=== PATIENT | female | born 1960 | race Caucasian/White ===

== ENCOUNTER 2022-07-19 10:09 | Outpatient (CLI) | payer OTHER, SELFPAY ==
--- NOTE | 2022-07-19 10:15 | CRLHL7_ITS ---
For Patients: As a result of the Century Cures Act, medical imaging exams and procedure reports are released immediately into your electronic medical record. You may view this report before your referring provider. If you have questions, please contact your health care provider. BILATERAL SCREENING MAMMOGRAM WITH COMPUTER-AIDED DETECTION TECHNIQUE: CC and MLO views were obtained. These mammographic images have been obtained using full-field digital technique. These mammographic images were interpreted with the benefit of computer-aided detection. COMPARISON FILM: 10/06/19, 09/24/18, 03/08/16. FINDINGS: There are scattered areas of fibroglandular density IMPRESSION: There is no radiographic evidence for malignancy. ASSESSMENT: BI-RADS Category 1: Negative RECOMMENDATION: Routine screening mammogram in 1 year. A lay language report of this examination will be provided to the patient. Tomas Watkins M.D. Diagnostic Radiologist [email or web address] BRITTNEY/Dictated by: Tomas Watkins MD @ 07/19/2022 11:02:00 AM (Electronically Signed)
== END 2022-07-19 10:10 | disposition home or self-care (01) ==
LOC: MAMMO 10:10
PROVIDERS: PCP Physician Assistant Medical; Visit Provider Physician Assistant Medical
DX: Z12.31 Encounter for screening mammogram for malignant neoplasm of breast (principal)
CPT/HCPCS: 77063; 77067

== ENCOUNTER 2022-08-29 07:53 | Day surgery (SDC) | payer OTHER, SELFPAY ==
[2022-08-29] VITALS (12 sets, daily range): BP systolic 113–157; BP diastolic 71–95; PULSE 56–69; RESP 12–16; TEMP 36.1–36.4; O2SAT 96–98; BMI 27.9
[2022-08-29] MEDS: LACTATED RINGERS 1000 ML 1,000 ML 100 ML IV (07:30)
[2022-08-29] MEDS: SODIUM CHLORIDE 0.9 % (FLUSH) 10 ML SYRINGE IVF (08:09)
[2022-08-29] MEDS: ROPIVACAINE 0.5% 30 ML 150 MG INJECTION (09:55)
--- NOTE | 2022-08-29 09:55 | P.ORPRC_ITS ---
Procedure Note Date of procedure: 08/29/22 Procedure: PREOPERATIVE DIAGNOSIS: 1. Left knee medial meniscus tear POSTOPERATIVE DIAGNOSIS: 1. Left knee medial meniscus tear-complex 2. 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 Left knee loose body-chondral fragment measuring 9 mm in diameter (likely coming from the patellar chondral defect) PROCEDURE: 1. Left knee arthroscopic partial medial menisectomy 2. Left knee arthroscopic chondroplasty patella 3. Left knee arthroscopic loose body removal SURGEON: Juno Reyes M.D. SOFTWARE TECHNICIAN: Ken Villagran PA-C. Of note, an ophthalmic medical assistant was critical for this case to aid in patient positioning, knee manipulation, instrument exchange, and closure. ANESTHESIA: Spinal EBL: 2ml TOURNIQUET: 30 min at 300 torr COMPLICATIONS: None evident INDICATIONS: The patient is a pleasant 62-year-old female who has experienced left knee pain particularly with any twisting or turning. Physical exam was concerning for medial meniscus tear, this was confirmed on MRI. Additionally, attempted nonoperative management has been tried, and failed. Thus, surgery was recommended. FINDINGS: 9 mm loose body immediately identified within the suprapatellar pouch upon entering the joint. 10 mm chondral defect patella median ridge centrally. Likely the donor site for the loose body. Complex tearing posterior horn to midbody medial meniscus. The posterior root was involved as well. Grade 2 chondromalacia primarily medial femoral condyle. ACL and PCL were intact. Lateral articular cartilage was healthy as was the lateral meniscus. DESCRIPTION OF PROCEDURE: After a thorough discussion of risks, benefits, and alternatives, the patient was brought to the operating room and placed upon the operating table. Induction of anesthesia was undertaken as previously noted. 2g iv Ancef was administered within 1 hr of incision preoperatively. Appropriate time-out was performed identifying proper patient, site, and procedure. The left lower extremity was prepped and draped in the appropriate sterile fashion using ChloraPrep. The limb was exsanguinated and tourniquet inflated. Anterolateral and anteromedial portals were established with an 11 blade, and a diagnostic arthroscopy was performed. This identified the findings as noted above. Following the diagnostic arthroscopy, a partial medial menisectomy was performed with the combination of basket forceps and a motorized shaver. Following this, the meniscus was re-probed and found to be stable. Approximately 10 or 40% of the overall meniscus required resection. Shaver was also utilized for loose body excision. After approximately 30 s econds, the shaver was able to debride this completely chondral fragment. Finally, chondroplasty was performed of the patellar chondral defect of the loose chondral flaps with a torpedo shaver. At this stage, the shaver was reinserted into the suprapatellar pouch and all remaining meniscal debris was evacuated. Instruments were removed, excess fluid was drained, and closure performed with 4-0 Monocryl with Steri-Strips. Dressings were applied, the tourniquet deflated, and the patient was awoken from anesthesia and transferred to the PACU in stable condition. PLAN: 1. Weightbear as tolerated operative extremity. Crutch / walker ambulation assistance PRN. Straight leg raise to be initiated starting tomorrow by the patient. 2. Ice, acetominophen and/or ibuprofen, and Percocet for pain as needed. 3. Knee range of motion and quad sets/straight leg raise regularly 4. Follow up with PA visit in 7-10 days. for a wound check. Initiate physical therapy at that time
--- NOTE | 2022-08-29 10:08 | W.ANESCHARGE ---
Anesthesia Charges Start Date/Time Anesthesia Start Date: 08/29/22 Anesthesia Start Time: 09:05 Stop Date/Time Anesthesia Stop Date: 08/29/22 Anesthesia Stop Time: 10:07 Summary Emergency: No
== END 2022-08-29 11:46 | disposition home or self-care (01) ==
PROVIDERS: PCP Physician Assistant Medical; Visit Provider Orthopaedic Surgery Sports Medicine
PROC: (CPT 29882; principal; 2022-08-29 09:15)
DX: S83.232A Complex tear of medial meniscus, current injury, left knee, initial encounter (principal); M22.42 Chondromalacia patellae, left knee; M24.012 Loose body in left shoulder
CPT/HCPCS: 29881; 01400; J1100; J2250; J2400; J2405; J2704; J2795; J3010; J7120

== ENCOUNTER 2023-04-10 07:36 | Outpatient (CLI) | payer OTHER, SELFPAY | END 2023-04-10 07:37 | disposition home or self-care (01) | LOC: NFLDREF 15:43 | PROVIDERS: PCP Physician Assistant Medical; Referring Provider Physician Assistant Medical; Visit Provider Physician Assistant Medical | DX: I10 Essential (primary) hypertension (principal); N18.2 Chronic kidney disease, stage 2 (mild); R80.9 Proteinuria, unspecified; E78.5 Hyperlipidemia, unspecified; E55.9 Vitamin D deficiency, unspecified; D50.9 Iron deficiency anemia, unspecified | CPT/HCPCS: 80053; 80061; 80069; 84439; 84443 ==

== ENCOUNTER 2023-04-16 14:27 | Outpatient (CLI) | payer OTHER, SELFPAY ==
[2023-04-16 17:57] LABS: Creatinine Urine 77.6 mg/dL; Microalbumin Creatinine Ratio 90 mg/g (0-30); Microalbumin Urine 7 mg/dL
== END 2023-04-16 14:28 | disposition home or self-care (01) ==
LOC: NFLDREF 14:27
PROVIDERS: PCP Physician Assistant Medical; Visit Provider Internal Medicine Nephrology
DX: N18.2 Chronic kidney disease, stage 2 (mild) (principal)
CPT/HCPCS: 82043; 82570; 87086

== ENCOUNTER 2023-05-27 09:24 | Outpatient (CLI) | payer OTHER, SELFPAY ==
--- NOTE | 2023-05-27 10:50 | W.ANESCHARGE ---
Anesthesia Charges Start Date/Time Anesthesia Start Date: 05/27/23 Anesthesia Start Time: 10:25 Stop Date/Time Anesthesia Stop Date: 05/27/23 Anesthesia Stop Time: 10:50
--- NOTE | 2023-05-27 11:15 | W.ANESCHARGE ---
Anesthesia Charges Start Date/Time Anesthesia Start Date: 05/27/23 Anesthesia Start Time: 10:25 Stop Date/Time Anesthesia Stop Date: 05/27/23 Anesthesia Stop Time: 10:50
== END 2023-05-27 09:25 | disposition home or self-care (01) ==
LOC: OP CLINIC 09:25
PROVIDERS: PCP Physician Assistant Medical; Visit Provider Surgery
DX: Z12.11 Encounter for screening for malignant neoplasm of colon (principal); K63.5 Polyp of colon
CPT/HCPCS: 45385; 811; 88305; J2704

== ENCOUNTER 2023-07-03 13:12 | Outpatient (CLI) | payer OTHER, SELFPAY | END 2023-07-03 13:13 | disposition home or self-care (01) | PROVIDERS: PCP Physician Assistant Medical; Visit Provider Physician Assistant Medical | DX: Z00.00 Encounter for general adult medical examination without abnormal findings (principal); D50.9 Iron deficiency anemia, unspecified; E78.5 Hyperlipidemia, unspecified; E55.9 Vitamin D deficiency, unspecified; N18.2 Chronic kidney disease, stage 2 (mild); I10 Essential (primary) hypertension; R80.9 Proteinuria, unspecified; R53.83 Other fatigue | CPT/HCPCS: 80061; 82306; 82607; 82728; 84443; 84450; 84460 ==

== ENCOUNTER 2023-07-25 09:58 | Outpatient (CLI) | payer OTHER, SELFPAY ==
--- NOTE | 2023-07-25 10:15 | CRLHL7_ITS ---
For Patients: As a result of the Century Cures Act, medical imaging exams and procedure reports are released immediately into your electronic medical record. You may view this report before your referring provider. If you have questions, please contact your health care provider. BILATERAL SCREENING MAMMOGRAM WITH COMPUTER-AIDED DETECTION TECHNIQUE: CC and MLO views were obtained. These mammographic images have been obtained using full-field digital technique. These mammographic images were interpreted with the benefit of computer-aided detection. COMPARISON FILM: 07/19/22, 10/06/19, 09/24/2018. FINDINGS: There are scattered areas of fibroglandular density. IMPRESSION: There is no radiographic evidence for malignancy. ASSESSMENT: BI-RADS Category 1: Negative RECOMMENDATION: Routine screening mammogram in 1 year. A lay language report of this examination will be provided to the patient. DARA CHONG M.D. Diagnostic/Nuclear Medicine Radiologist [email or web address] Transcribed: 1:[address]/Dictated by: Dara Chong MD @ 07/26/2023 10:16:00 AM (Electronically Signed)
== END 2023-07-25 09:59 | disposition home or self-care (01) ==
LOC: MAMMO 09:58
PROVIDERS: PCP Physician Assistant Medical; Visit Provider Physician Assistant Medical
DX: Z12.31 Encounter for screening mammogram for malignant neoplasm of breast (principal)
CPT/HCPCS: 77067

== ENCOUNTER 2023-10-23 09:04 | Outpatient (CLI) | payer OTHER, SELFPAY | END 2023-10-23 09:05 | disposition home or self-care (01) | LOC: NFLDREF 10-26 07:18 | PROVIDERS: PCP Physician Assistant Medical; Referring Provider Physician Assistant Medical; Visit Provider Internal Medicine Nephrology | DX: D50.9 Iron deficiency anemia, unspecified (principal); E78.5 Hyperlipidemia, unspecified; I10 Essential (primary) hypertension; N18.2 Chronic kidney disease, stage 2 (mild) | CPT/HCPCS: 80061; 80069; 82043; 82570; 84450; 84460; 84550; 86140; 87086 ==

== ENCOUNTER 2024-08-05 09:20 | Outpatient (CLI) | payer OTHER, SELFPAY | END 2024-08-05 09:21 | disposition home or self-care (01) | LOC: NFLDREF 08-06 08:26 | PROVIDERS: PCP Physician Assistant Medical; Referring Provider Physician Assistant Medical; Visit Provider Physician Assistant Medical | DX: Z00.00 Encounter for general adult medical examination without abnormal findings (principal); I10 Essential (primary) hypertension; N18.2 Chronic kidney disease, stage 2 (mild); E55.9 Vitamin D deficiency, unspecified; E78.2 Mixed hyperlipidemia; I51.7 Cardiomegaly | CPT/HCPCS: 80053; 80061; 82306; 84443 ==

== ENCOUNTER 2025-02-17 13:47 | Outpatient (CLI) | payer OTHER, SELFPAY ==
--- NOTE | 2025-02-17 14:00 | CRLHL7_ITS ---
For Patients: As a result of the Century Cures Act, medical imaging exams and procedure reports are released immediately into your electronic medical record. You may view this report before your referring provider. If you have questions, please contact your health care provider. INDICATION: BILATERAL SCREENING MAMMOGRAM, ASYMPTOMATIC 64 Y/O FEMALE COMPARISON: 07/25/2023, 07/19/2022, 10/06/2019 TECHNIQUE: Digital mammogram in CC and MLO projections including computer-aided detection (CAD) and tomosynthesis. BREAST COMPOSITION: There are scattered areas of fibroglandular density. FINDINGS: No suspicious findings. ASSESSMENT: BI-RADS 1 Negative RECOMMENDATION: Annual screening mammogram. A lay language report of this examination will be provided to the patient. Dictated by: Tomas Watkins MD @ 02/18/2025 09:17:15 (Electronically Signed)
== END 2025-02-17 13:48 | disposition home or self-care (01) ==
LOC: MAMMO 13:48
PROVIDERS: PCP Physician Assistant Medical; Visit Provider Physician Assistant Medical
DX: Z12.31 Encounter for screening mammogram for malignant neoplasm of breast (principal)
CPT/HCPCS: 77063; 77067

== ENCOUNTER 2025-03-31 10:01 | Day surgery (SDC) | payer OTHER, SELFPAY ==
[2025-03-31] VITALS (24 sets, daily range): BP systolic 90–188; BP diastolic 55–99; PULSE 44–76; RESP 10–18; TEMP 34.9–36.3; O2SAT 94–98; BMI 28.6
[2025-03-31] MEDS: LACTATED RINGERS 1000 ML 1,000 ML 100 ML IV ×2 (10:32→12:56)
[2025-03-31] MEDS: OXYCODONE (CR) 10 MG TAB.ER.12H PO (10:33)
[2025-03-31] MEDS: ACETAMINOPHEN 500 MG TABLET 1000 MG PO ×3 (10:33→23:30)
[2025-03-31] MEDS: SODIUM CHLORIDE 0.9 % (FLUSH) 10 ML SYRINGE IVF (10:33)
--- NOTE | 2025-03-31 11:10 | W.PM.H&PU ---
History & Physical Update History & Physical Update H&P Reviewed and patient assessed: No changes noted
[2025-03-31] MEDS: MIDAZOLAM HCL 1 MG/ML inj IVP (11:55)
[2025-03-31] MEDS: fentaNYL 100 MCG/2 ML inj IVP (11:55)
--- NOTE | 2025-03-31 12:08 | SUR.PREOP ---
TIME?OUT:?1155 PT/RN/MDA?VERIFICATION?OF?SURGICAL?SITE,?PROCEDURE,?AND?CONSENT OBTAINED?PRIOR?TO?INVASIVE?PROCEDURE.
[2025-03-31] MEDS: CEFAZOLIN 1 GM inj IVP (12:10)
--- NOTE | 2025-03-31 12:15 | P.NB_ITS ---
Nerve Block Nerve Block Time Seen by Provider: 11:57 Date Seen: 03/31/25 Type of block requested by surgeon for post-operative analgesia: adductor canal Side: right Time out performed: Yes Verification of patient name: Yes Verification of date of : Yes Site marking: site marked Name of person performing procedure: Isaías Continuous monitoring Was continuous monitoring of O2 sat, B/P, air sampling and monitoring, recorded every 15 minutes?: Yes Procedure Checklist: sterile prep, needles and gloves Ultrasound guided. Images saved: Yes Medications given in 5ml increments after negative aspiration: Marcaine %: 0.25 mL: 15 Needle gauge: 20 Precedex (mcg): 25 Patient tolerated procedure well: Yes Block Charges Block Charge (with Pro Fee): Femoral Nerve Use of Ultrasound Machine for Block: Yes- US Guidance/pain block
--- NOTE | 2025-03-31 12:16 | P.ANES_ITS ---
Anesthesia Charges Start Date/Time Anesthesia Start Date: 03/31/25 Anesthesia Start Time: 12:02 Stop Date/Time Anesthesia Stop Date: 03/31/25 Anesthesia Stop Time: 14:16 Coding CPT Codes CPT Codes: ANESTH KNEE ARTHROPLASTY - 39593 ([id number]) P2 - PATIENT W/MILD SYST DISEASE, QK - ADMISSIONS SUPERVISOR 2-4 CNCRNT ANES PROC, QX - MASSAGE THERAPIST SVC W/ MD MED DIRECTION
--- NOTE | 2025-03-31 12:16 | P.NB_ITS ---
Nerve Block Nerve Block Time Seen by Provider: 11:57 Date Seen: 03/31/25 Type of block requested by surgeon for post-operative analgesia: geniculars Side: right Time out performed: Yes Verification of patient name: Yes Verification of date of : Yes Site marking: site marked Name of person performing procedure: Isaías Continuous monitoring Was continuous monitoring of O2 sat, B/P, laboratory monitor, recorded every 15 minutes?: Yes Procedure Checklist: sterile prep, needles and gloves Ultrasound guided. Images saved: Yes Medications given in 5ml increments after negative aspiration: Marcaine %: 0.25 mL: 9 Needle gauge: 25 Patient tolerated procedure well: Yes Block Charges Block Charge (with Pro Fee): Genicular Nerve Block
--- NOTE | 2025-03-31 12:16 | W.ANESCHARGE ---
Anesthesia Charges Start Date/Time Anesthesia Start Date: 03/31/25 Anesthesia Start Time: 12:02 Stop Date/Time Anesthesia Stop Date: 03/31/25 Anesthesia Stop Time: 14:16 Coding CPT Codes CPT Codes: ANESTH KNEE ARTHROPLASTY - 04542 ([id number]) P2 - PATIENT W/MILD SYST DISEASE, QK - THREAD REELER 2-4 CNCRNT ANES PROC, QX - FASHION COORDINATOR SVC W/ MD MED DIRECTION
[2025-03-31] MEDS: TRANEXAMIC ACID 100 MG/ML INJ 1000 MG IV (12:20)
--- NOTE | 2025-03-31 12:25 | CRLHL7_ITS ---
For Patients: As a result of the Cures Act, medical imaging exams and procedure reports are released immediately into your electronic medical record. You may view this report before your referring provider. If you have questions, please contact your health care provider. Indication: Postop Technique: Two views right knee Findings/Impression: Hardware from a right total knee arthroplasty is in satisfactory position. Bone alignment is normal. No sign of acute fracture. Postop changes are within normal limits. Dictated by Tomas Watkins MD @ 03/31/2025 2:41:15 PM (Electronically Signed)
--- NOTE | 2025-03-31 13:37 | PM.ORPRC ---
Procedure Note Date of procedure: 03/31/25 Procedure: PREOPERATIVE DIAGNOSIS: 1. Right knee osteoarthritis, primary, severe POSTOPERATIVE DIAGNOSIS: 1. Right knee osteoarthritis, primary, severe PROCEDURE: 1. Right total knee arthroplasty SURGEON: Juno Reyes MD. GROUP UNDERWRITER: Radha Vuong PA-C - Of note, a skilled family readiness support assistant was critical for this case to aid in patient positioning, tissue retraction, limb manipulation/positioning, and closure. ANESTHESIA: [Spinal] anesthetic EBL: [50ml] IMPLANTS: DePuy J&J uncemented TKA - Attune PS femur size 6 regular Size 5 tibia [5] poly spacer 38 mm [Affixium] patella TOURNIQUET: [90 min at 300 torr] COMPLICATIONS: [None evident] INDICATIONS: The patient is a pleasant 64-year-old female who has experienced severe right knee pain and difficulty bearing weight. Workup included x-rays which revealed severe osteoarthrosis in the knee. Given the deformity, the dysfunction, and the pain, as well as the failure of nonoperative management, recommendation was made for surgery. FINDINGS: Full-thickness chondral loss diffusely throughout the lateral and patellofemoral compartments and to a lesser degree medial compartment. Degenerative lateral greater than medial meniscus pathology. Large effusion upon entering the joint. DESCRIPTION OF PROCEDURE: Following a thorough discussion of risks, benefits, and alternatives consent was obtained and the right knee was marked. The patient was brought to the operating room and placed supine on the operating table. Induction of anesthesia was undertaken. [2 g IV Ancef] and 1 g tranexamic acid was administered within 1 hr of incision preoperatively. Proper time-out was performed identifying proper patient, site, procedure. The operative extremity was prepped and draped in the appropriate sterile fashion using ChloraPrep after the patient was positioned supine with all bony prominences well padded. A longitudinal, anterior, midline skin incision was made starting approximately 3cm proximal to the superior pole of the patella and advanced distal to the tibial tubercle. A [sub vastus approach was utilized] . After mobilizing the patella, retropatellar fatpad was resected and the synovium in the suprapatellar pouch excised to visualize the anterior femoral cortex. Patellar prep began with an initial measurement/thickness of [24] mm. It was resected back to approximately [14] mm. The patella prep was completed with drilling and a trial placed. Femoral preparation was performed via an intramedullary guide. Step drill allowed access into the femoral canal. The distal cutting guide was placed with 6? of valgus and 13 mm cut on the distal femur[ due to a 10+ degree flexion contracture]. Femur was sized using a [anterior] referencing guide in [3]? of external rotation. This found have a best fit with the sizing noted above. The 4 in 1 cutting block was then placed, and the distal femur shaped accordingly. The box cut was then created and the trial implant inserted to confirm appropriate fit. We turned our attention to the proximal tibia. Extramedullary guide was utilized for cutting with the goal of being 90 degree cut from the mechanical axis of the tibia in the varus/valgus plane utilizing tibial crest as the primary alignment. Initially a 3 mm resection was performed from the medial tibial plateau.[ An additional 2 mm of tibial resection was needed to achieve proper balance in both flexion & extension.] Ultimately, balancing was achieved in both flexion and extension in both varus and valgus. The knee was able to achieve full extension comfortably. It was sized to be a best fit with as noted above. [At this stage, trial implants were removed, the tibia and femoral and patellar components were opened and inserted. The real poly spacer was opened and inserted. A 3 min Betadine soak performed. Finally, a final irrigation round with normal saline was performed.] Closure performed with 0 PDS and #0 Stratafix for the quad tendon/retinaculum. 2-0 Vicryl/Stratafix for the subcutaneous and 4-0 Monocryl for subcuticular closure. Dressings were applied and the patient was awoken from anesthesia after the tourniquet deflated and transferred the PACU in stable condition. A skilled family readiness support assistant was critical for this case to aid in patient positioning, tissue retraction, bone exposure, limb manipulation/positioning, patient safety, and closure. PLAN: 1. Weight bear as tolerated operative extremity. 2. 23 hr perioperative antibiotics. 3. Ice. 4. PT/OT consults for ambulation assistance/mobility education. 5. Social work consult for discharge planning. 6. DVT prophylaxis with at SCDs, and Xarelto.
--- NOTE | 2025-03-31 14:18 | P.ANES_ITS ---
Anesthesia Charges Start Date/Time Anesthesia Start Date: 03/31/25 Anesthesia Start Time: 12:02 Stop Date/Time Anesthesia Stop Date: 03/31/25 Anesthesia Stop Time: 14:16 Coding CPT Codes CPT Codes: ANESTH KNEE ARTHROPLASTY - 03861 ([id number]) P2 - PATIENT W/MILD SYST DISEASE, QK - MARKETING EFFECTIVENESS MANAGER 2-4 CNCRNT ANES PROC, QX - INDUSTRIAL ECONOMIST SVC W/ MD MED DIRECTION
--- NOTE | 2025-03-31 14:18 | W.ANESCHARGE ---
Anesthesia Charges Start Date/Time Anesthesia Start Date: 03/31/25 Anesthesia Start Time: 12:02 Stop Date/Time Anesthesia Stop Date: 03/31/25 Anesthesia Stop Time: 14:16 Coding CPT Codes CPT Codes: ANESTH KNEE ARTHROPLASTY - 21294 ([id number]) P2 - PATIENT W/MILD SYST DISEASE, QK - SOFT SUGAR SUPERVISOR 2-4 CNCRNT ANES PROC, QX - BUILDING CONSTRUCTION ENGINEER SVC W/ MD MED DIRECTION
--- NOTE | 2025-03-31 15:16 | PM.IMCN1 ---
Date of Consult Patient: [facility] Patient Consult date: 03/31/25 Requesting Physician: Orthopedics Primary Care Provider: Héctor Edward PA-C Consult Narrative Reason for consult: Medical management of comorbidities Narrative: Susan Tellez is a 64 year old female who presented to the hospital today for an elective R TKA with Dr. Reyes of Orthopedic Surgery. There were no surgical or anesthetic complications noted during procedure. Patient's H&P reviewed, PCP is Héctor Edward. 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 History of blood clots: No Postoperative plan: Home with family. Review of Systems Status of ROS: Reports: 10 or more systems reviewed and unremarkable except as noted in History and below PFSH [facility] Medical History (Updated 03/31/25 @ 17:37 by Marii Chaney MD) Hyperlipidemia ?E78.5 - Hyperlipidemia, unspecified (ICD-10) Proteinuria (12/22/12) ?R80.9 - Proteinuria, unspecified (ICD-10) Osteoarthritis of left knee ?M17.12 - Unilateral primary osteoarthritis, left knee (ICD-10) Osteoarthritis of right knee ?M17.11 - Unilateral primary osteoarthritis, right knee (ICD-10) Other internal derangements of left knee ?M23.8X2 - Other internal derangements of left knee (ICD-10) Acute medial meniscus tear of left knee ?S83.242A - Other tear of medial meniscus, current injury, left knee, initial encounter (ICD-10) Vitamin D deficiency (12/22/12) ?E55.9 - Vitamin D deficiency, unspecified (ICD-10) Stage 2 chronic kidney disease (03/04/13) ?N18.2 - Chronic kidney disease, stage 2 (mild) (ICD-10) Cardiomegaly ?I51.7 - Cardiomegaly (ICD-10) Benign hypertension (12/03/11) ?I10 - Essential (primary) hypertension (ICD-10) Herpes zoster ?B02.9 - Zoster without complications (ICD-10) Iron deficiency anemia (12/22/12) ?D50.9 - Iron deficiency anemia, unspecified (ICD-10) Tendinitis of left quadriceps tendon ?M76.892 - Other specified enthesopathies of left lower limb, excluding foot (ICD-10) Patellar tendinitis, left knee ?M76.52 - Patellar tendinitis, left knee (ICD-10) Effusion, left knee ?M25.462 - Effusion, left knee (ICD-10) Chest pain ?R07.9 - Chest pain, unspecified (ICD-10) History of pulmonary embolism ?Z86.711 - Personal history of pulmonary embolism (ICD-10) Nephropathy (12/22/12) ?N28.9 - Disorder of kidney and ureter, unspecified (ICD-10) Ganglion of wrist ?M67.439 - Ganglion, unspecified wrist (ICD-10) Surgical History (Updated 03/31/25 @ 17:36 by Marii Chaney MD) Status post right knee replacement ?Z96.651 - Presence of right artificial knee joint (ICD-10) History of colonoscopy ?Z98.890 - Other specified postprocedural states (ICD-10) S/P left knee arthroscopy ?Z98.890 - Other specified postprocedural states (ICD-10) S/P right knee arthroscopy (04/03/11) ?Z98.890 - Other specified postprocedural states (ICD-10) Status post biopsy of kidney ?Z98.890 - Other specified postprocedural states (ICD-10) History of knee surgery (01/29/03) ?Z98.890 - Other specified postprocedural states (ICD-10) History of tubal ligation (12/22/12) ?Z98.51 - Tubal ligation status (ICD-10) Family History Mother Diabetes Family/Other Kidney disease Social History (Updated 07/03/23 @ 13:18 by Shannon Banerjee ~ CTA) Narrative: Non-smoker What is your current living situation?: I presently have a place to live Problems where you live: no known problems In the past 12 months, utilities in danger of being shut off: no In past 12 months, lack of transportation kept you from medical appts, meetings, work, or getting things needed for daily living: no In the past 12 mos, have been you worried that your food would run out before you had money to buy more?: never true In the past 12 mos, the food you bought just didn't last and you didn't have money to buy more?: never true Smoking Status: Never smoker How often do you have a drink containing alcohol: never AUDIT-C Alcohol total score: 0 Non-prescribed substance use: denies use Caffeine: No How often does anyone, including family, friends and others, physically hurt you: never How often does anyone, including family, friends and others, insult or talk down to you: never How often does anyone, including family, friends and others, threaten you with harm: never How often does anyone, including family, friends and others, scream or curse at you: never Are you using contraception or practicing any form of control: No service: No Meds Home Medications and Allergies Home Medications ?Medication ?Instructions ?Recorded ?Confirmed ?Type amlodipine 5 mg tablet 5 mg PO DAILY #90 tabs 08/05/24 03/31/25 Rx atorvastatin 10 mg tablet 10 mg PO DAILY #90 tabs 08/05/24 03/31/25 Rx carvedilol 6.25 mg tablet 6.25 mg PO BID #180 tabs 08/05/24 03/31/25 Rx Allergies Allergy/AdvReac Type Severity Reaction Status Date / Time No Known Allergies Allergy Unknown Verified 03/31/25 10:22 Exam Narrative: Exam Narrative: GEN: Sleepy but arouses to voice, nontoxic HEENT: EOMIs bilaterally, no scleral icterus CV: Sinus bradycardia, no concerning murmurs R: LCTA bilaterally Ext: wwp, no concerning edema Skin: No concerning skin lesions or rashes on exposed skin Neuro: Nonfocal Psych: Appropriate Const: Vital Signs, click to edit/add: Vital Signs - 24 hr 03/31/25 10:54 03/31/25 11:55 03/31/25 12:00 Temperature 97.4 F L Pulse Rate 76 76 60 Respiratory Rate 16 16 16 Blood Pressure 173/99 H 188/99 H 145/84 H Pulse Oximetry 97 96 98 Oxygen Delivery Me thod Room Air Nasal Cannula Nasal Cannula Oxygen Flow Rate 2 2 03/31/25 14:12 03/31/25 14:20 03/31/25 14:25 Temperature 97.3 F L Pulse Rate 50 L 51 L 50 L Respiratory Rate 12 14 14 Blood Pressure 90/55 L 92/55 L 93/55 L Pulse Oximetry 96 95 94 Oxygen Delivery Me thod Room Air Room Air Room Air Oxygen Flow Rate 03/31/25 14:30 03/31/25 14:35 03/31/25 14:40 Temperature 97.2 F L Pulse Rate 48 L 51 L 53 L Respiratory Rate 14 14 14 Blood Pressure 91/56 L 95/63 100/66 Pulse Oximetry 95 94 96 Oxygen Delivery Me thod Room Air Room Air Room Air Oxygen Flow Rate 03/31/25 14:45 Temperature 97.2 F L Pulse Rate 49 L Respiratory Rate 14 Blood Pressure 101/69 Pulse Oximetry 95 Oxygen Delivery Me thod Room Air Oxygen Flow Rate Assessment and Plan Assessment and plan (1) Status post right knee replacement: Problem comment: - 03/31/25, Dr. Reyes Status: Acute (2) Benign hypertension: Problem comment: - goal BP <130/80 per Nephrology, on Carvedilol and Amlodipine Status: Acute (3) Stage 2 chronic kidney disease: Problem comment: - thin basement membrane glomerular disease, follows with Dr. Ching of Nephrology Status: Acute Plan - pain management and prophylaxis per orthopedic surgery team - continue home medications for comorbidities - anticipate routine postoperative course
[2025-03-31] MEDS: OXYCODONE 5 MG TABLET PO ×2 (17:55→21:35)
[2025-03-31] MEDS: CEFAZOLIN 2 GM in 0.9 % SODIUM CHLORIDE Mini-bag 100 ML IVPB (18:13)
--- NOTE | 2025-03-31 19:20 | PC.NURSE ---
End of shift [id number] - Pt arrived from PACU at approximately 1450. Able to answer questions and follow directions, but drowsy on arrival. Dressing CDI, ice pack in place, pedal pulse present. Pt up to chair with assist x1 and walker/gait belt. Reported feeling lightheaded during ambulation, able to recover with rest. Pt experienced incontinent voiding episode with ambulation. Pt noted to be bradycardic during recovery on Med/Surg. MD made aware, not orders given. Pt rated pain in operative knee as 5/10, given medication per MAR with pt reporting improved comfort and noted to sleep briefly. Family at bedside, pt appears to be resting in chair at end of shift with call light within reach.
[2025-03-31] MEDS: SENNOSIDES 1 TAB TABLET 2 TAB PO (20:30)
[2025-03-31] MEDS: carvediloL 6.25 MG TABLET PO (20:30)
[2025-04-01] MEDS: CEFAZOLIN 2 GM in 0.9 % SODIUM CHLORIDE Mini-bag 100 ML IVPB ×2 (02:10→09:54)
[2025-04-01] MEDS: OXYCODONE 5 MG TABLET PO ×2 (02:24→05:31)
[2025-04-01 02:25] VITALS: BP 161/89; PULSE 71; RESP 16; TEMP 36.2; O2SAT 95
[2025-04-01] MEDS: ACETAMINOPHEN 500 MG TABLET 1000 MG PO (05:31)
[2025-04-01 06:30] LABS: Basophils Absolute Auto 0.01 K/uL (0.00-0.30); Basophils Percent Auto 0.1 % (0.0-3.0); Hematocrit 38.8 % (33.0-51.0); Hemoglobin* 13.2 gm/dL (12.0-16.0); Immature Granulocytes Abs Auto 0.02 K/uL (0.00-0.30); Immature Granulocytes Pct Auto 0.2 %; Lymphocytes Percent Auto 8.3 % (20-44); Mean Corpuscular HGB Conc 34 gm/dL (32-36); Mean Corpuscular Hemoglobin 30 pg (26-34); Mean Corpuscular Volume 89 fL (80-100); Monocytes Percent Auto 7.9 % (0.0-11.0); Neutrophils Percent Auto 83.5 % (42.0-72.0); Platelet Count* 250 K/uL (140-440); RDW Coefficient of Variation % 11.8 % (11.5-15.5); Red Blood Count 4.36 m/uL (4.00-5.20); White Blood Count* 8.27 K/uL (4.50-11.00)
[2025-04-01 06:35] LABS: Slide Review Reflex No
[2025-04-01 06:36] LABS: Potassium* 3.8 mmol/L (3.6-5.1); Sodium* 130 mmol/L (135-149)
[2025-04-01 06:39] LABS: Blood Urea Nitrogen* 18 mg/dL (7-30); Creatinine* 0.7 mg/dL (0.5-1.5); Est. Creatinine Clearance* 60.96; Estimated Glomerular Filt Rate 98 ml/min
[2025-04-01 07:00] VITALS: BP 157/76; PULSE 77; RESP 16; TEMP 36.8; O2SAT 97
--- NOTE | 2025-04-01 07:23 | PC.NURSE ---
Arrived to find the patient somewhat tired and resting in their chair, alert and oriented and vitally stable with a low temperature. This temperature has continued to be on the low end through my shift. Pain has been described more so in her right groin area than the right incision area. The dressing over the right knee is clean dry and intact. No signs of swelling. Full sensation and movement in all extremities. They have met all their post-operative goals. Currently using a rolling walker to ambulate for safety. Pain is well controlled with PRN oxycodone. Given three times over my 12 hour shift. They appeared to be in a medically stable state of health at time of transfer of care.?
[2025-04-01] MEDS: ATORVASTATIN CALCIUM 10 MG TABLET PO (08:10)
[2025-04-01] MEDS: AMLODIPINE 5 MG TABLET PO (08:10)
[2025-04-01] MEDS: RIVAROXABAN 10 MG TABLET PO (08:10)
[2025-04-01] MEDS: SENNOSIDES 1 TAB TABLET 2 TAB PO (08:10)
[2025-04-01] MEDS: carvediloL 6.25 MG TABLET PO (08:10)
[2025-04-01] MEDS: ONDANSETRON 2 MG/ML inj 4 MG IVP (10:55)
--- NOTE | 2025-04-01 11:16 | PM.ORPN ---
Subjective Subjective Date Seen: 04/01/25 Ortho Exam Const Vital Signs, click to edit/add: Vital Signs - 24 hr 03/31/25 11:55 03/31/25 12:00 03/31/25 14:12 Temperature 97.3 F L Pulse Rate 76 60 50 L Pulse Rate [Pulse Oximeter] Respiratory Rate 16 16 12 Blood Pressure 188/99 H 145/84 H 90/55 L Blood Pressure [Left Arm] Blood Pressure [Right Arm] Pulse Oximetry 96 98 96 Oxygen Delivery Method Nasal Cannula Nasal Cannula Room Air Oxygen Flow Rate 2 2 03/31/25 14:20 03/31/25 14:25 03/31/25 14:30 Temperature 97.2 F L Pulse Rate 51 L 50 L 48 L Pulse Rate [Pulse Oximeter] Respiratory Rate 14 14 14 Blood Pressure 92/55 L 93/55 L 91/56 L Blood Pressure [Left Arm] Blood Pressure [Right Arm] Pulse Oximetry 95 94 95 Oxygen Delivery Method Room Air Room Air Room Air Oxygen Flow Rate 03/31/25 14:35 03/31/25 14:40 03/31/25 14:45 Temperature 97.2 F L Pulse Rate 51 L 53 L 49 L Pulse Rate [Pulse Oximeter] Respiratory Rate 14 14 14 Blood Pressure 95/63 100/66 101/69 Blood Pressure [Left Arm] Blood Pressure [Right Arm] Pulse Oximetry 94 96 95 Oxygen Delivery Method Room Air Room Air Room Air Oxygen Flow Rate 03/31/25 14:50 03/31/25 15:00 03/31/25 15:00 Temperature 94.8 F L Pulse Rate 48 L Pulse Rate [Pulse Oximeter] Respiratory Rate 12 12 Blood Pressure 114/75 Blood Pressure [Left Arm] Blood Pressure [Right Arm] Pulse Oximetry 94 96 95 Oxygen Delivery Method Room Air Room Air Oxygen Flow Rate 03/31/25 15:05 03/31/25 15:25 03/31/25 15:40 Temperature 95.0 F L 95.1 F L 95.2 F L Pulse Rate 48 L 45 L 46 L Pulse Rate [Pulse Oximeter] Respiratory Rate 12 12 10 L Blood Pressure 109/73 118/77 123/75 Blood Pressure [Left Arm] Blood Pressure [Right Arm] Pulse Oximetry 95 96 94 Oxygen Delivery Method Oxygen Flow Rate 03/31/25 15:55 03/31/25 16:24 03/31/25 16:55 Temperature 95.4 F L 95.4 F L Pulse Rate 44 L 44 L 47 L Pulse Rate [Pulse Oximeter] Respiratory Rate 12 Blood Pressure 107/67 137/84 129/86 Blood Pressure [Left Arm] Blood Pressure [Right Arm] Pulse Oximetry 95 98 97 Oxygen Delivery Method Oxygen Flow Rate 03/31/25 17:55 03/31/25 18:55 03/31/25 20:00 Temperature 96.1 F L 96.0 F L 96.7 F L Pulse Rate 53 L 64 59 L Pulse Rate [Pulse Oximeter] Respiratory Rate 16 16 14 Blood Pressure 137/79 159/83 H 166/91 H Blood Pressure [Left Arm] Blood Pressure [Right Arm] Pulse Oximetry 94 95 96 Oxygen Delivery Method Room Air Oxygen Flow Rate 03/31/25 21:30 03/31/25 23:00 03/31/25 23:30 Temperature 96.5 F L 97.2 F L Pulse Rate 61 Pulse Rate [Pulse Oximeter] 67 Respiratory Rate 16 18 Blood Pressure 155/88 H Blood Pressure [Left Arm] Blood Pressure [Right Arm] 154/82 H Pulse Oximetry 97 97 96 Oxygen Delivery Method Room Air Room Air Room Air Oxygen Flow Rate 03/31/25 23:30 04/01/25 02:25 04/01/25 07:00 Temperature 97.1 F L Pulse Rate Pulse Rate [Pulse Oximeter] 71 Respiratory Rate 16 Blood Pressure Blood Pressure [Left Arm] Blood Pressure [Right Arm] 161/89 H Pulse Oximetry 96 95 97 Oxygen Delivery Method Room Air Oxygen Flow Rate 04/01/25 07:00 04/01/25 07:00 Temperature 98.3 F Pulse Rate Pulse Rate [Pulse Oximeter] 77 Respiratory Rate 16 16 Blood Pressure Blood Pressure [Left Arm] 157/76 H Blood Pressure [Right Arm] Pulse Oximetry 97 97 Oxygen Delivery Method Room Air Room Air Oxygen Flow Rate Assessment and Plan Assessment and plan (1) Status post right knee replacement: Problem details: - 03/31/25, Dr. Reyes Status: Acute (2) Benign hypertension: Problem details: - goal BP <130/80 per Nephrology, on Carvedilol and Amlodipine Status: Acute (3) Stage 2 chronic kidney disease: Problem details: - thin basement membrane glomerular disease, follows with Dr. Ching of Nephrology Status: Acute (4) Pulmonary embolism: Problem details: - noted during hospital stay at [place] 04/2018, no DVT - appears unprovoked per chart review - will treat with Xarelto for 30 days Status: Chronic Plan - Complete 23 hour perioperative antibiotics. - PT/OT consult for education and assistance. - Social work consult for discharge planning - Prescribed analgesics as needed - DVT prophylaxis: Rivaroxaban 10 mg once daily, walking, and SCDs - Anticipation is for discharge to home with today 04/01/2025 if the patient remains medically stable, pain is controlled, and they are safe with mobilization.
--- NOTE | 2025-04-01 12:24 | PC.NURSE ---
The patient discharged home with her . Prior to discharge the patient had 300cc of emesis, the patient then stayed on the unit for another hour and reported feeling better. PRN nausea medication was given. Then the patient was wheeled off the unit with her belongings. Kelley MELENDEZ BSN
== END 2025-04-01 12:00 | disposition home or self-care (01) ==
LOC: OR 10:02 → MEDSURG 10:03
PROVIDERS: PCP Physician Assistant Medical; Visit Provider Orthopaedic Surgery Sports Medicine
PROC: (CPT 27447; principal; 2025-03-31 12:00)
DX: M17.11 Unilateral primary osteoarthritis, right knee (principal); G89.18 Other acute postprocedural pain; I13.0 Hypertensive heart and chronic kidney disease with heart failure and stage 1 through stage 4 chronic kidney disease, or unspecified chronic kidney disease; N18.2 Chronic kidney disease, stage 2 (mild); I50.9 Heart failure, unspecified; E78.5 Hyperlipidemia, unspecified; Z86.711 Personal history of pulmonary embolism; E55.9 Vitamin D deficiency, unspecified
CPT/HCPCS: 27447; 01402; 36415; 64447; 64454; 73560; 76942; 82565; 84132; 84295; 84520; 85025; 97110; 97116; 97161; 97165; 97530; 97535; A9270; C1776; J0665; J0690; J2250; J2405; J2704; J3010; J7120

== ENCOUNTER 2025-08-05 09:31 | Outpatient (CLI) | payer OTHER, SELFPAY | END 2025-08-05 09:32 | disposition home or self-care (01) | LOC: NFLDREF 08-06 10:30 | PROVIDERS: PCP Physician Assistant Medical; Referring Provider Physician Assistant Medical; Visit Provider Physician Assistant Medical | DX: I10 Essential (primary) hypertension (principal); E55.9 Vitamin D deficiency, unspecified; Z13.9 Encounter for screening, unspecified | CPT/HCPCS: 80053; 80061; 82306; 84443 ==